=== PATIENT | male | born 1970 | race Asian ===

== ENCOUNTER 2020-01-06 14:23 | Emergency (ER) | payer BC ==
[~2020-01-06] VITALS: Ht 170.2 cm; Wt 75.0 kg
[2020-01-06] MEDS ORDERED: VISCOUS LIDOCAINE 2% 15 ML UDC MM ONE (17:00)
[2020-01-06 17:29] VITALS: BP 118/74
== END 2020-01-06 17:00 | disposition home or self-care (01) ==
LOC: ER 14:23
DX: R09.89 Other specified symptoms and signs involving the circulatory and respiratory systems (principal); R03.0 Elevated blood-pressure reading, without diagnosis of hypertension
CPT/HCPCS: 70360; 99283